=== PATIENT | female | born 1945 | race African-American/Black ===

== ENCOUNTER 2017-11-21 14:29 | Emergency (ER) | payer OTHER ==
[~2017-11-21] VITALS: Ht 154.9 cm; Wt 49.9 kg
--- NOTE | 2017-11-21 14:29 | NUR ---
JAZMINE ARDON ALS TO ER BED 09
[2017-11-21 14:35] VITALS: BP 110/62
--- NOTE | 2017-11-21 14:42 | NUR ---
ORANGE JUICE GIVEN
[2017-11-21] MEDS ORDERED: DEXTROSE 50% 50 ML SYR IVP ONE (14:45)
--- NOTE | 2017-11-21 14:54 | NUR ---
DAUGHTERS AT BEDSIDE
[2017-11-21] MEDS ORDERED: LISI-420 PO (15:14)
[2017-11-21] MEDS ORDERED: METF500T PO (15:14)
[2017-11-21] MEDS ORDERED: MEMA10TA20 PO (15:14)
[2017-11-21] MEDS ORDERED: ATOR20TA PO (15:14)
[2017-11-21] MEDS ORDERED: DONE10TA10 PO (15:14)
[2017-11-21] MEDS ORDERED: MIRT15TA PO (15:14)
[2017-11-21 15:21] LABS: BASOPHILS % (AUTO) 0.6 % (0.0-2.0); EOSINOPHILS % (AUTO) 0.4 % (0.0-4.0); HEMATOCRIT 42.4 % (36-48); HEMOGLOBIN 13.5 g/dL (12.0-16.0); LYMPHOCYTES # (AUTO) 1.7 K/uL (2.5-16.5); MEAN CORPUSCULAR HEMOGLOBIN 28 pg (27-31); MEAN CORPUSCULAR HGB CONC 32 g/dL (33-37); MEAN CORPUSCULAR VOLUME 87.1 fL (80-94); MONOCYTES # (AUTO) 0.2 K/uL (0.8-1.0); MONOCYTES % (AUTO) 4.1 % (1.7-9.3); NEUTROPHILS # (AUTO) 3.6 K/uL (1.8-7.7); NEUTROPHILS % (AUTO) 64.9 % (42.2-75.2); PLATELET COUNT (AUTO) 173 K/uL (140-450); RED BLOOD CELL COUNT(AUTO) 4.87 MIL/uL (4.20-5.40); RED CELL DISTRIBUTION WIDTH 15.1 % (11.6-13.7); WHITE BLOOD COUNT (AUTO) 5.5 K/uL (4.8-10.8)
[2017-11-21 15:41] LABS: ANION GAP 17.8 (8-16); CREATININE 1.1 mg/dL (0.6-1.3); POTASSIUM 3.8 mmol/L (3.5-5.1)
[2017-11-21 15:48] LABS: ALBUMIN 3.9 g/dL (3.4-5.0); TOTAL BILIRUBIN 0.7 mg/dL (0.0-1.0)
[2017-11-21 16:12] LABS: PROTHROMBIN TIME 10.4 secs (10.8-13.4)
[2017-11-21] MEDS ORDERED: NACL 0.9% 500 ML IV ONE (16:55)
[2017-11-21 17:08] LABS: APPEARANCE,URINE CLEAR (CLEAR); BILIRUBIN,URINE 2+ (NEGATIVE); BLOOD, URINE NEGATIVE (NEGATIVE); COLOR,URINE YELLOW (YELLOW); LEUKOCYTE ESTERASE ,URINE TRACE (NEGATIVE); NITRITE, URINE NEGATIVE (NEGATIVE); PH,URINE 5.5 (5.0-9.0); UGLUCOSE 1+ (NEGATIVE)
[2017-11-21 17:12] LABS: RBC,URINE 0-5 (RARE) /HPF (0-5); WBC,URINE 16-25 (MOD) /HPF (0-5)
[2017-11-21] MEDS ORDERED: cefTRIAXone 1,000 MG VIAL ONE (17:24)
--- NOTE | 2017-11-21 17:41 | NUR ---
resting with ou closed , no s/s resp distress---feet crossed and hands folded over abd daughters remain at bedside. will continue to observe for any changes
[2017-11-21 18:00] VITALS: BP 112/75
--- NOTE | 2017-11-21 18:01 | NUR ---
Patient discharged with v/s stable. Written and verbal after care instructions given and explained. Patient alert, oriented and verbalized understanding of instructions. Wheel Chair Assisted with to car. All questions addressed prior to discharge. ID band removed. Patient advised to follow up with PMD. Rx of keflex given. Patient educated on indication of medication including possible reaction and side effects. Opportunity to ask questions provided and answered.
== END 2017-11-21 18:01 | disposition home or self-care (01) ==
LOC: MED 14:29
DX: R55 Syncope and collapse (principal); N39.0 Urinary tract infection, site not specified; E11.649 Type 2 diabetes mellitus with hypoglycemia without coma; E86.0 Dehydration; G30.9 Alzheimer's disease, unspecified; F02.80 Dementia in other diseases classified elsewhere, unspecified severity, without behavioral disturbance, psychotic disturbance, mood disturbance, and anxiety; I10 Essential (primary) hypertension; Z79.899 Other long term (current) drug therapy; Z79.84 Long term (current) use of oral hypoglycemic drugs
CPT/HCPCS: 36415; 71045; 80053; 81001; 82948; 84484; 85025; 85610; 93005; 96361; 96365; 96375; 99285; J0696; J7030; 99283